=== PATIENT | male | born 1950 | race African-American/Black ===

== ENCOUNTER 2020-04-23 16:56 | Emergency (ER) | payer OTHER ==
[~2020-04-23] VITALS: Ht 175.3 cm; Wt 70.3 kg
[2020-04-23] MEDS ORDERED: MIRALAX119 GM PO (17:05)
[2020-04-23] MEDS ORDERED: RISPERDAL 3 MG T3 MG PO (17:05)
[2020-04-23] MEDS ORDERED: DESYREL150 MG PO (17:05)
[2020-04-23] MEDS ORDERED: FOLIC ACID1 MG PO (17:05)
[2020-04-23] MEDS ORDERED: HALOPERIDOL 5 MG5 MG PO (17:06)
[2020-04-23] MEDS ORDERED: XALATAN2.5 ML OPHTHALMIC (17:06)
[2020-04-23] MEDS ORDERED: ASPERCREME1 EACH TOP (17:07)
[2020-04-23] MEDS ORDERED: LINZESS145 MCG PO (17:07)
[2020-04-23] MEDS ORDERED: PROTONIX40 M2 PO (17:08)
[2020-04-23] MEDS ORDERED: MAGOX 400400 MG PO (17:08)
[2020-04-23] MEDS ORDERED: MELATONIN3 M1 PO (17:08)
[2020-04-23] MEDS ORDERED: ASA81BEC PO (17:08)
[2020-04-23] MEDS ORDERED: LIPITOR 10 MG10 M1 PO (17:09)
[2020-04-23] MEDS ORDERED: BENZTROPINE MESY2 MG PO (17:09)
[2020-04-23] MEDS ORDERED: VOLTAREN GEL 1100 G1 TOP (17:10)
[2020-04-23] MEDS ORDERED: CYMBALTA30 MG PO (17:10)
[2020-04-23] MEDS ORDERED: VITAMIN B-121000 MC2 PO (17:10)
[2020-04-23] MEDS ORDERED: FINASTERIDE5 MG PO (17:11)
[2020-04-23 19:14] LABS: ABSOLUTE NEUTROPHILS 7.6 thou/uL (1.4-8.2); BASOPHILS 0.5 % (0.0-2.0); EOSINOPHILS 0.3 % (0.0-3.0); HEMOGLOBIN 11.1 gm/dL (14.0-18.0); LYMPHOCYTES 11.5 % (24.0-44.0); MCHC 31.8 g/dL (28.0-37.0); MCV 81.7 fL (80.0-100.0); MONOCYTES 10.9 % (1.0-8.0); PLATELET COUNT 296 thou/uL (150-400); POLYS 76.8 % (36.0-66.0); RBC 4.28 mil/uL (4.50-6.00); RDW 17.4 % (10.5-14.5); WBC 9.9 thou/uL (4.0-11.0)
[2020-04-23 19:26] LABS: ANION GAP 7 mmol/L (7-16); BUN 15 mg/dL (7-18); CALCIUM 9.5 mg/dL (8.5-10.1); CHLORIDE 104 mmol/L (98-107); CO2 29 mmol/L (21-32); CREATININE 0.9 mg/dL (0.7-1.3); GLUCOSE 236 mg/dL (74-106); POTASSIUM 3.4 mmol/L (3.5-5.1); SODIUM 140 mmol/L (136-145)
[2020-04-23 19:34] LABS: TROPONIN-I <0.06 ng/mL (<0.06)
[2020-04-24 02:42] VITALS: BP 165/87
--- NOTE | 2020-04-24 07:42 | EKG ---
[facility] [place] [address] ELECTROCARDIOGRAM REPORT Name: FELTON SWEET Room #: DEP [facility].#: [id number] Admission: 04/23/20 Attend Phys: Discharge: 04/24/20 Date of : 48 Report #: [id number] THIS REPORT FOR: cc: MINDY ARAUZ - Family physician unknown Fredi Griffin MD [facility] ~ THIS REPORT FOR: //name// [facility] ED Test Date: 2020-04-23 Test Time: 17:31:32 Pat Name: FELTON SWEET Department: Room: Gender: Peer Tutor: [facility] : 1950 Requested By: Colby Keys Order Number: [id number] MD: Fredi Griffin Measurements Intervals [place] Rate: 91 P: 38 MN: 140 QRS: -5 QRSD: 94 T: 31 QT: 386 QTc: 475 Interpretive Statements Sinus rhythm No significant abnormality No previous ECG available for comparison Electronically Signed On 04-24-2020 7:42:11 CDT by Fredi Griffin [email or web address] <ELECTRONICALLY SIGNED> By: Fredi Griffin MD, [facility] 04/24/20 0742 30 30 Fredi Griffin MD, [facility] /EPI
== END 2020-04-24 02:43 | disposition home or self-care (01) ==
LOC: ER 16:56
PROVIDERS: Emergency Medicine
DX: U07.1 COVID-19 (principal); I95.9 Hypotension, unspecified; E10.9 Type 1 diabetes mellitus without complications; E78.5 Hyperlipidemia, unspecified; Z79.82 Long term (current) use of aspirin; Z79.899 Other long term (current) drug therapy; Z88.5 Allergy status to narcotic agent; Z88.8 Allergy status to other drugs, medicaments and biological substances